=== PATIENT | male | born 1940 | race Caucasian/White ===

== ENCOUNTER 2021-02-12 17:55 | Emergency (ER) | payer MEDICARE, SELFPAY ==
--- NOTE | ~2021-02-12 | CT_ITS ---
EXAMINATION: CT brain wo con DATE: 02/12/2021 18:28 INDICATION: Fall. Head injury. TECHNIQUE: Computed tomography (CT) of the head was performed without intravenous contrast. The mA wa s adjusted according to patient size. Iterative reconstruction technique was employed. Exam dose: 68 1.00 mGy-cm total exam DLP. COMPARISON: 02/20/2011 CT brain 04/20/2016 MRI brain FINDINGS: There is extensive right cerebellar hemisphere chronic abnormal hypoattenuation. This may be due to old infarction or postoperative change. There is occipital craniectomy. There is a high right frontoparietal ventriculostomy catheter tract. There is central and cortical cerebral and cerebellar atrophy. Bilateral basal ganglia calcifications. No intracranial mass lesion or hemorrhage, midline shift or mass effect. No subdural or epidural varsha danielle. No skull fracture is detected. Small mucous retention cyst of left maxillary sinus. The paranasal sinuses and mastoid air cells are otherwise unremarkable. IMPRESSION: Occipital craniotomy and underlying chronic cephalization of the right cerebellum Old right frontal ventriculostomy catheter tract No acute intracranial abnormality. Reviewed, dictated and finalized at [facility]. Reviewed, dictated and finalized at [facility]. IMPRESSION: Occipital craniotomy and underlying chronic cephalization of the r ight cerebellum Old right frontal ventriculostomy catheter tract No acute intracranial abnormality.
--- NOTE | ~2021-02-12 | CT_ITS ---
EXAMINATION: CT cervical spine wo con DATE: 02/12/2021 18:28 INDICATION: Fall. Neck injury. Neck pain. TECHNIQUE: Computed tomography (CT) of the cervical spine was performed without intravenous contrast. Automated exposure control and iterative reconstruction technique were employed. Exam dose: 203.63 mGy-cm total exam DLP. COMPARISON: None FINDINGS: There is levoscoliosis of the cervical spine. No fracture or dislocation or locked facet or prevertebral soft tissue swelling. 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 Likewise there is incomplete segmentation at C4-5, congenital anomaly. There is moderately severe degenerative disc disease and mild retrolisthesis at C3-4. There is severe degenerative disc disease at C5-6. There is a 3 mm anterolisthesis at C6-7. There is severe degenerative disc disease and minimal anterolisthesis at C7-T1. There is severe degenerative disease at T1-2 and T2-3. There is severe degenerative change at the apophyseal joints of the cervical spine. 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 Reviewed, dictated and finalized at [facility].
[2021-02-12 17:57] VITALS: BP 204/78; PULSE 89; RESP 18; TEMP 36.7; O2SAT 99
[2021-02-12] MEDS: LIDOCAINE, EPINEPHRINE, TETRACAINE VISCOUS SOLN 3 ML (18:18)
[2021-02-12] MEDS: TETANUS,DIPHTHERIA,AC PERTUSSIS ADULT (0.5 ML) BOOSTRIX (18:20)
--- NOTE | 2021-02-12 19:25 | ED.GENADULT ---
HPI - General Adult General Chief complaint: Wound/Laceration Stated complaint: fall/head lac Time Seen by Provider: 02/12/21 18:06 Source: patient Mode of arrival: ambulatory Limitations: no limitations History of Present Illness HPI narrative: Patient is a 80-year-old male who presented to emergency department for evaluation of head injury patient was hurrying up the stairs fell forward striking the head sustaining a laceration to the left brow patient notes mild headache patient denies loss of consciousness syncope or anticoagulant use patient on arrival to emergency department is in the room in no distress patient notes history of chronic neck pain and surgery patient otherwise in no distress is unsure as to tetanus status patient lives at home with his Related Data Allergies Allergy/AdvReac Type Severity Reaction Status Date / Time Sulfa (Sulfonamide Allergy Mild ITCH, HIVES Verified 02/12/21 18:04 Antibiotics) Review of Systems Review of Systems: All systems reviewed & are unremarkable except as noted in HPI and below PMFSH Past Medical History Medical History (Updated 02/12/21 @ 19:30 by Mejia Koenig PA-C) Arthritis Surgical History Surgical History H/O brain surgery Social History Social History (Updated 02/12/21 @ 19:27 by Mejia Koenig PA-C) Smoking status: Never smoker Gender identity (if verbalized by the patient): Male Exam Narrative: Exam Narrative: GENERAL: Well-appearing, well-nourished, and in no acute distress. HEAD: Normocephalic, 1.5 cm flap laceration above the left brow. Small well approximated half centimeter wound to the nasal bridge EYES: PERRLA and EOMI. ENT: Nares clear, no rhinorrhea or epistaxis. Mucous membranes moist. CHEST: Clear to auscultation. No respiratory distress. No wheezes rales or rhonchi HEART: Regular rate and rhythm. No murmur heard. Normal peripheral pulses. ABDOMEN: Soft, nontender, nondistended EXTREMITIES: Normal range of motion. No edema. Mild paraspinal cervical tenderness. No thoracic or lumbar tenderness SKIN: Warm, dry, no rash. NEURO: No focal deficits. Alert and oriented x3. Cranial nerves II through XII grossly intact. Normal speech and gait PSYCH: Normal mood and affect. Course Course Emergency Course: Patient on arrival to emergency department in no distress resting comfortably had closure of his laceration in the emergency department negative CT imaging. Patient will follow with primary care for further evaluation. Family is present aware of the findings and plan and agree with the plan Vital Signs Vital signs: Vital Signs Temperature 98.1 F 02/12/21 17:57 Pulse Rate 89 02/12/21 17:57 Respiratory Rate 18 02/12/21 17:57 Blood Pressure 204/78 H 02/12/21 17:57 Pulse Oximetry 99 02/12/21 17:57 Temperature 98.1 F 02/12/21 17:57 Pulse Rate 89 02/12/21 17:57 Respiratory Rate 18 02/12/21 17:57 Blood Pressure 204/78 H 02/12/21 17:57 Pulse Oximetry 99 02/12/21 17:57 Procedures Laceration Laceration 1: Date: 02/12/21 Time: 19:29 Site: face Side (If applicable): left Size (cm): 1.5 Description: flap ====== Skin Level ====== Skin layer closed with: dermabond ====== Subcutaneous Layer ====== ====== Muscle Layer ====== ====== Tendon Layer ====== Medical Decision Making [facility] Narrative Medical decision making narrative: Patient in the room no distress aware of case findings treatment plan diagnosis negative CT imaging will be discharged home with family for further evaluation on outpatient basis Vital Signs Vital Signs: Vital Signs Temperature 98.1 F 02/12/21 17:57 Pulse Rate 89 02/12/21 17:57 Respiratory Rate 18 02/12/21 17:57 Blood Pressure 204/78 H 02/12/21 17:57 Pulse Oximetry 99 02/12/21 17:57 Temperature 98.1 F 02/12/21 17:57 Puls
== END 2021-02-12 19:42 | disposition home or self-care (01) ==
PROVIDERS: Emergency Provider Emergency Medicine; PCP Internal Medicine
DX: S01.112A Laceration without foreign body of left eyelid and periocular area, initial encounter (principal); M19.90 Unspecified osteoarthritis, unspecified site; Z23 Encounter for immunization; W10.9XXA Fall (on) (from) unspecified stairs and steps, initial encounter
CPT/HCPCS: 12011; 70450; 72125; 90471; 90715; 99284

== ENCOUNTER 2021-03-02 08:28 | Outpatient (CLI) | payer MEDICARE, SELFPAY ==
--- NOTE | 2021-03-02 10:00 | NEURO_ITS ---
Impression: # Complains of numbness and pain in hands, left more than right. # Severe Carpal Tunnel Syndrome bilaterally. # Significant neurogenic changes in bilateral APB. # Left ulnar neuropathy across the elbow. Nerve Conduction Studies Anti Sensory Summary Table Stim Site NR Peak (ms) P-T Amp (?V) Site1 Site2 Delta-P (ms) Dist (cm) Ray (m/s) Left Median Anti Sensory (2-3nd Digit) NO RESPONSE Wrist NR Wrist 2-3nd Digit 14.0 Wrist NR Wrist 2-3nd Digit 14.0 Right Median Anti Sensory (2-3nd Digit) Wrist 6.0 9.7 Wrist 2-3nd Digit 6.0 14.0 23 Wrist 8.1 7.7 Wrist 2-3nd Digit 6.0 14.0 23 Left Radial Anti Sensory (Base 1st Digit) Wrist 2.3 18.0 Wrist Base 1st Digit 2.3 0.0 Right Radial Anti Sensory (Base 1st Digit) Wrist 2.8 16.8 Wrist Base 1st Digit 2.8 0.0 Left Ulnar Anti Sensory (5th Digit) Wrist 2.7 30.9 Wrist 5th Digit 2.7 14.0 52 Right Ulnar Anti Sensory (5th Digit) Wrist 2.6 39.1 Wrist 5th Digit 2.6 14.0 54 Motor Summary Table Stim Site NR Onset (ms) O-P Amp (mV) Site1 Site2 Delta-0 (ms) Dist (cm) Ray (m/s) Left Median Motor (Abd Poll Brev) NO RESPONSE Wrist NR Elbow Wrist 26.0 Elbow NR Right Median Motor (Abd Poll Brev) NO RESPONSE Wrist NR Elbow Wrist 26.0 Elbow NR Left Ulnar Motor (Abd Dig Minimi) Wrist 2.5 4.2 A Elbow Wrist 6.4 30.0 47 A Elbow 8.9 3.5 B Elbow Wrist 4.7 26.0 55 B Elbow 7.2 3.4 Right Ulnar Motor (Abd Dig Minimi) Wrist 2.7 4.5 A Elbow Wrist 5.4 30.0 56 A Elbow 8.1 4.1 F Wave Studies NR F-Lat (ms) L-R F-Lat (ms) Left Median (Mrkrs) (Abd Poll Brev) NO RESPONSE NR Right Median (Mrkrs) (Abd Poll Brev) DISPERSED RESPONSE NR Left Ulnar (Mrkrs) (Abd Dig Min) 30.98 0.83 Right Ulnar (Mrkrs) (Abd Dig Min) 30.16 0.83 EMG Side Muscle Nerve Root Ins Act Fibs Amp Dur Recrt Comment Right 1stDorInt Ulnar C8-T1 Nml Nml Nml Nml Nml Right Ext Indicis Radial (Post Int) C7-8 Nml Nml Nml Nml Nml Right Ext Digitorum Radial (Post Int) C7-8 Nml Nml Nml Nml Nml Right BrachioRad Radial C5-6 Nml Nml Nml Nml Nml Right PronatorTeres Median C6-7 Nml Nml Nml Nml Nml Right Abd Poll Brev Median C8-T1 Nml Nml Decr >12ms Reduced Left 1stDorInt Ulnar C8-T1 Nml Nml Decr >12ms Reduced Left Ext Indicis Radial (Post Int) C7-8 Nml Nml Nml Nml Nml Left Ext Digitorum Radial (Post Int) C7-8 Nml Nml Nml Nml Nml Left BrachioRad Radial C5-6 Nml Nml Nml Nml Nml Left PronatorTeres Median C6-7 Nml Nml Nml Nml Nml Left Abd Poll Brev Median C8-T1 Nml Nml Decr >12ms Reduced Right ABD Dig Min Ulnar C8-T1 Nml Nml Nml Nml Nml Left ABD Dig Min Ulnar C8-T1 Nml Nml Decr >12ms Reduced MTDD
== END 2021-03-02 08:29 | disposition home or self-care (01) ==
PROVIDERS: PCP Internal Medicine; Visit Provider Internal Medicine
DX: G56.03 Carpal tunnel syndrome, bilateral upper limbs (principal); G56.22 Lesion of ulnar nerve, left upper limb
CPT/HCPCS: 95886; 95911

== ENCOUNTER 2022-10-11 08:15 | Outpatient (CLI) | payer MEDICARE, SELFPAY ==
--- NOTE | ~2022-10-11 | XR_ITS ---
EXAMINATION: XR abdomen/kub 1V INDICATION: History of kidney stones TECHNIQUE: Supine views of the abdomen were obtained on 2 radiographs. COMPARISON: 06/19/2013 FINDINGS: Bowel contents project over the kidneys limiting sensitivity for renal stones. No definite urolithiasis is identified. There are changes of bilateral total hip arthroplasty. Severe lumbar spon dylosis is noted. The visualized lung bases are clear. There are changes of prior cardiac surgery. IMPRESSION: 1. No definite urolithiasis identified. Reviewed, dictated and finalized at [facility]. [employer]
== END 2022-10-11 08:16 | disposition home or self-care (01) ==
PROVIDERS: PCP Internal Medicine; Visit Provider Nurse Practitioner Adult Health
DX: Z87.442 Personal history of urinary calculi (principal)
CPT/HCPCS: 74018

== ENCOUNTER 2022-12-25 00:08 | Day surgery (SDC) | payer MEDICARE, SELFPAY ==
[2022-12-11 10:48] VITALS: BMI 26.7
--- NOTE | 2022-12-22 15:14 | PM.HPGS ---
History of Present Illness History of Present Illness Consent: Risks, benefits, and alternatives have been discussed and questions answered. Patient agrees to proceed with procedure. Chief complaint: positive cologuard Narrative: Arjun Garvey is a 82 year old male Referred for colon cancer screening. A Cologuard test was positive Review of Systems Review of Systems: All systems reviewed & are unremarkable except as noted in HPI and below PMFSH Past Medical History Medical History Arthritis Surgical History Surgical History H/O brain surgery Social History Social History Smoking status: Former smoker Tobacco type: cigarettes Smokeless tobacco user: chewing tobacco Alcohol use details: RARELY Substance use type: does not use Living arrangements: with family Gender identity (if verbalized by the patient): Male Spiritual care concerns: No Meds Home Medications and Allergies Home Medications Medication Instructions Recorded Confirmed Type amlodipine 10 mg tablet 10 mg PO DAILY 12/11/22 12/11/22 History aspirin 81 mg tablet 81 mg PO DAILY 12/11/22 12/11/22 History atorvastatin 20 mg tablet 20 mg PO DAILY 12/11/22 12/11/22 History cetirizine 10 mg tablet (Zyrtec) 10 mg PO DAILY 12/11/22 12/11/22 History diclofenac sodium 75 mg 75 mg PO BID 12/11/22 12/11/22 History tablet,delayed release finasteride 5 mg tablet 5 mg PO DAILY 12/11/22 12/11/22 History lisinopril 40 mg tablet 40 mg PO DAILY 12/11/22 12/11/22 History metoprolol tartrate 50 mg tablet 50 mg PO BID 12/11/22 12/11/22 History iipzwjvt-rym-ebwya acid 300 tablet PO 12/11/22 History mcg-lycopene 600 mcg-lutein 300 mcg tablet (Centrum Silver Men) tamsulosin 0.4 mg capsule 0.4 mg PO DAILY 12/11/22 12/11/22 History Allergies Allergy/AdvReac Type Severity Reaction Status Date / Time Sulfa (Sulfonamide Allergy Mild ITCH, HIVES Verified 12/11/22 10:43 Antibiotics) Exam Resp: Auscultation: clear to auscultation bilaterally Cardio: Rate: regular rate Rhythm: regular rhythm GI: GI Palp: Yes Soft to palpation and No Tenderness to palpation present (GI) Assessment and Plan Assessment and plan (1) Colon cancer screening: Code(s): Z12.11 - Encounter for screening for malignant neoplasm of colon Status: Acute Assessment and Plan: Colonoscopy with possible biopsy or polypectomy or cautery or injection of substances.
[2022-12-25] MEDS: LACTATED RINGERS 1,000 ML 150 ML IV CONT (08:39)
[2022-12-25] MEDS: GENTAMICIN 80MG/SOD CHL 50 ML 80 MG/50 ML BAG 100 MG IVPB (08:40)
--- NOTE | 2022-12-25 08:58 | P.PNAN_ITS ---
Anes - Initial Pre Proc Eval Procedure: Operation Date: 12/25/22 09:30 Proposed Procedures p Colonoscopy - Saman Mccarthy MD Date/Time: 12/25/22 08:58 Surgeon: Saman Mccarthy MD Pre Op Diagnosis: positive cologuard Patient Data Age: 82 Gender: M Height: 1.7 m Weight: 77.5 kg Allergies Allergy/AdvReac Type Severity Reaction Status Date / Time Sulfa (Sulfonamide Allergy Mild ITCH, HIVES Verified 12/11/22 10:43 Antibiotics) Home Medications Medication Instructions Recorded Confirmed Type amlodipine 10 mg tablet 10 mg PO DAILY 12/11/22 12/11/22 History aspirin 81 mg tablet 81 mg PO DAILY 12/11/22 12/11/22 History atorvastatin 20 mg tablet 20 mg PO DAILY 12/11/22 12/11/22 History cetirizine 10 mg tablet (Zyrtec) 10 mg PO DAILY 12/11/22 12/11/22 History diclofenac sodium 75 mg 75 mg PO BID 12/11/22 12/11/22 History tablet,delayed release finasteride 5 mg tablet 5 mg PO DAILY 12/11/22 12/11/22 History lisinopril 40 mg tablet 40 mg PO DAILY 12/11/22 12/11/22 History metoprolol tartrate 50 mg tablet 50 mg PO BID 12/11/22 12/11/22 History atfmekhn-vll-tmkoo acid 300 tablet PO 12/11/22 History mcg-lycopene 600 mcg-lutein 300 mcg tablet (Centrum Silver Men) tamsulosin 0.4 mg capsule 0.4 mg PO DAILY 12/11/22 12/11/22 History Patient hx anesthesia problems: none Family hx anesthesia problems: none Results Review: All pre-operative results and documents have been reviewed as part of the pre- operative evaluation. [facility] Past Medical History Medical History Arthritis Surgical History Surgical History H/O brain surgery Social History Social History Smoking status: Former smoker Tobacco type: cigarettes Smokeless tobacco user: chewing tobacco Alcohol use details: RARELY Substance use type: does not use Living arrangements: with family Gender identity (if verbalized by the patient): Male Spiritual care concerns: No Anes - Eval Final PreProcedure Day of Procedure 12/25/22 08:58 Patient weight: normal Heart: regular rate and rhythm Lungs: clear to auscultation Airway: Mallampati scale class II Neurological: alert and oriented Last oral intake: >/= 8 hours ASA classification: III Emergent: no Anesthetic plan: proceed Anesthesia type and monitoring: general GIVS and standard monitoring Results Review: All pre-operative results and documents have been reviewed as part of the pre-operative evaluation. Informed Consent: The patient's anesthetic plan and its attendant risks and benefits were discussed with the patient/family/POA. Questions were solicited and answers provided to the satisfaction of the patient/family/POA.
[2022-12-25] MEDS: AMPICILLIN 2 GM/NS 100 ML 2 GM/100 ML BAG IVPB (09:22)
[2022-12-25 09:44] VITALS: BP 117/66; PULSE 62; RESP 19; O2SAT 100
[2022-12-25 09:54] VITALS: BP 144/74; PULSE 56; RESP 23; O2SAT 98
[2022-12-25 10:04] VITALS: BP 147/71; PULSE 56; RESP 19; O2SAT 99
== END 2022-12-25 10:13 | disposition home or self-care (01) ==
PROVIDERS: PCP Internal Medicine; Visit Provider Internal Medicine Gastroenterology
PROC: 0DJD8ZZ Inspection of Lower Intestinal Tract, Via Natural or Artificial Opening Endoscopic (ICD-10-PCS; CPT 45378; principal; 2022-12-25 09:30)
DX: Z12.11 Encounter for screening for malignant neoplasm of colon (principal); K57.30 Diverticulosis of large intestine without perforation or abscess without bleeding; K64.8 Other hemorrhoids; R19.5 Other fecal abnormalities; F17.220 Nicotine dependence, chewing tobacco, uncomplicated; Z79.82 Long term (current) use of aspirin
CPT/HCPCS: G0121; J0290; J1580; J2704; J7120

== ENCOUNTER 2024-03-30 19:12 | Emergency (ER) | payer MEDICARE, SELFPAY ==
--- NOTE | ~2024-03-30 | CT_ITS ---
EXAMINATION: CT abdomen pelvis w con DATE: 03/30/2024 20:24 INDICATION: Left flank pain and hematuria TECHNIQUE: Computed tomography (CT) of the abdomen and pelvis was performed with 100 mL Omnipaque-350 intravenous contrast. Automated exposure control and iterative reconstruction technique were employe d. The dose-length product was 472.14 mGy-cm. COMPARISON: None FINDINGS: Small band of discoid atelectasis/scarring in the right middle lobe. Heart size is normal. Atheroscle rotic coronary artery calcifications. Postoperative change of prior median sternotomy and coronary ar sarah bypass grafting. There is also been prior aortic valve repair. Liver, gallbladder, spleen, pancr eas and bilateral adrenal glands are normal. There are bilateral renal cysts the largest on the left measuring 5.0 cm. Bilateral nonobstructing nephrolithiasis with 2 mm stone at the upper pole of the l eft kidney and 2 mm and 4 mm stones at the lower pole of the right kidney. No ureteral stones or hydr onephrosis. The distalmost portions of the ureters along the course of the bladder and prostate are h owever obscured by dense metallic streak artifact from bilateral total hip arthroplasties. There are a couple large stones in the dependent bladder the larger measuring 2.4 cm. Numerous diverticula roseanne g the descending and sigmoid colon without adjacent inflammatory change to suggest diverticulitis. Sm all bowel and appendix are normal. No free intraperitoneal gas or fluid. No pathologically enlarged a bdominal or pelvic lymphadenopathy. Severe lumbar spondylosis. There are bridging osteophytes at mult iple levels in the lower thoracic spine consistent with diffuse idiopathic skeletal hyperostosis (DIS H). IMPRESSION: 1. Bilateral nonobstructing nephrolithiasis and a couple large bladder stones. 2. Prominent diverticulosis. Reviewed, dictated and finalized at location [facility].
[2024-03-30 19:14] VITALS: BP 183/68; PULSE 74; RESP 17; TEMP 36.6; O2SAT 99
--- NOTE | 2024-03-30 19:26 | ED.GENADULT ---
HPI - General Adult General Chief complaint: Urogenital-Male Stated complaint: blood in urine, pain with urination Time Seen by Provider: 03/30/24 19:19 Source: patient Mode of arrival: ambulatory Limitations: no limitations History of Present Illness HPI narrative: This is a 83-year-old male with PMH of hemangioblastoma, CAD s/p CABGx4, SCC, nephrolithiasis who presents to the ED with chief complaint of hematuria and difficulty urinating onset today. Patient is concerned that he may have another kidney stone. He had some a left side and left flank pain over the past couple of weeks intermittently. Reports today he noticed diego blood while urinating. He states he had 2 episodes today where he started the stream and was unable to completely void. States he had a prostate checked last year with good PSA. Follows with Dr. Balderrama. Denies nausea, vomiting, fevers, chills, abdominal pain, problems with bowel movements. Related Data Home Medications Medication Instructions Recorded Confirmed amlodipine 10 mg tablet 10 mg PO DAILY 12/11/22 12/11/22 aspirin 81 mg tablet 81 mg PO DAILY 12/11/22 12/11/22 atorvastatin 20 mg tablet 20 mg PO DAILY 12/11/22 12/11/22 cetirizine 10 mg tablet (Zyrtec) 10 mg PO DAILY 12/11/22 12/11/22 diclofenac sodium 75 mg 75 mg PO BID 12/11/22 12/11/22 tablet,delayed release finasteride 5 mg tablet 5 mg PO DAILY 12/11/22 12/11/22 lisinopril 40 mg tablet 40 mg PO DAILY 12/11/22 12/11/22 metoprolol tartrate 50 mg tablet 50 mg PO BID 12/11/22 12/11/22 qsbastrs-ux-okesx 300 mcg-K 60 tablet PO 12/11/22 mcg-lycop 600 mcg-lutein 300 mcg tablet (Centrum Silver Men) tamsulosin 0.4 mg capsule 0.4 mg PO DAILY 12/11/22 12/11/22 Allergies Allergy/AdvReac Type Severity Reaction Status Date / Time Sulfa (Sulfonamide Allergy Mild ITCH, HIVES Verified 03/30/24 19:24 Antibiotics) Review of Systems Review of Systems: All systems as dictated in [facility] Past Medical History Medical History Arthritis Surgical History Surgical History H/O brain surgery Social History Social History Smoking status: Former smoker Tobacco type: cigarettes Smokeless tobacco user: chewing tobacco Alcohol use details: RARELY Substance use type: does not use Living arrangements: with family Gender identity (if verbalized by the patient): Male Spiritual care concerns: No Exam Narrative: GENERAL: Well-appearing, well-nourished, and in no acute distress. HEAD: Normocephalic, atraumatic. EYES: PERRLA and EOMI. ENT: Nares clear, no rhinorrhea or epistaxis. Mucous membranes moist. Oropharynx without tonsillar hypertrophy exudate or other lesions. NECK: Supple. No adenopathy or masses. CHEST: No respiratory distress. Clear to auscultation. No wheezes rales or rhonchi HEART: Regular rate and rhythm. No murmur heard. Normal peripheral pulses. ABDOMEN: Mild suprapubic tenderness. Soft, otherwise nontender, nondistended, normal active bowel sounds. Negative flank tenderness bilaterally. No rigidity or guarding MSK: Normal range of motion. No edema. SKIN: Warm, dry, no rash. NEURO: Alert and oriented x3. No focal deficits. PSYCH: Normal mood and affect. Course Consultations Consultation #1: Spoke with Dr. Mcleod (Urology): He feels that the patient will likely need a cystoscope with laser treatment of this large bladder stone. Since the patient is able to void on his own, has no fevers or signs of infection, the patient should be able to do this procedure outpatient. Recommends following up with Dr. Linares (pt's urologist) in the morning. Date: 03/30/24 Time: 21:01 Vital Signs Vital signs: Vital Signs Temperature 97.9 F 03/30/24 19:14 Pulse Rate 74 03/30/24 19:14 Respiratory Rate 17 03/30/24 19:14 Blood Pr
[2024-03-30 19:52] VITALS: BP 145/57; PULSE 67; RESP 16; O2SAT 99
[2024-03-30 19:55] LABS: Basophils Absolute Auto 0.1 K/mm3 (0.0-0.1); Basophils Percent Auto 1.1 % (0.2-1.2); Eosinophils Absolute Auto 0.5 K/mm3 (0-0.3); Eosinophils Percent Auto 5.9 % (0-4.4); Hematocrit 33.4 % (42.0-52.0); Hemoglobin 10.8 g/dL (14.0-18.0); Immature Granulocyte Absolute 0.02 K/mm3 (0.00-0.031); Immature Granulocyte Percent A 0.2 % (0-0.5); Lymphocytes Absolute Auto 1.52 K/mm3 (0.9-3.2); Lymphocytes Percent Auto 18.8 % (18.3-44.2); Mean Corpuscular HGB Conc 32.3 g/dl (32-36); Mean Corpuscular Volume 92.8 fl (80-100); Mean Platelet Volume 10.4 fl (7.4-10.4); Monocytes Absolute Auto 0.8 K/mm3 (0.1-0.6); Monocytes Percent Auto 10.2 % (2.6-8.5); Neutrophils Absolute Auto 5.1 K/mm3 (1.3-6.7); Neutrophils Percent Auto 63.8 % (45.5-73.1); Platelet Count Result 164 k/mm3 (150-375); Red Cell Distribution Width 13.7 % (11.5-14.5); White Blood Count 8.1 K/mm3 (4.5-10.0)
[2024-03-30 20:05] LABS: Alanine Aminotransferase 24 U/L (6-50); Albumin Level 4.5 g/dL (3.5-5.1); Alkaline Phosphatase 81 U/L (38-126); Anion Gap 9 mmol/L (4-12); Aspartate Amino Transferase 33 U/L (17-59); Bilirubin,Total 0.5 mg/dL (0.2-1.3); Blood Urea Nitrogen 46 mg/dL (9-20); Calcium 9.8 mg/dL (8.4-10.2); Carbon Dioxide 22 mmol/L (22-30); Chloride 112 mmol/L (98-107); Estimated CRCL calculation 31 ml/min; Estimated Glomerular Filt Rate 45; Glucose 142 mg/dL (65-110); Lipase 306 U/L (23-300); Potassium 4.6 mmol/L (3.4-5.0); Sodium 143 mmol/L (137-145)
[2024-03-30 20:15] LABS: Appearance Urine Clear (Clear); Bacteria Urine None Seen /hpf; Bilirubin Urine Negative (Negative); Blood Urine 3+ (Negative); Color Urine Yellow (Yellow); Glucose Urine UA Negative (Negative); Ketones Urine Trace mg/dL (Negative); Leukocyte Esterase Ur 1+ LEU/UL (Negative); Nitrate Urine Negative (Negative); Protein Urine Negative (Negative); RBC Urine >100 /hpf (0-2); Specific Grav Ur 1.019 (1.001-1.035); Squamous Epithelial Cell Urine Occasional /hpf (Few); Urobilinogen Urine 0.2 mg/dL (<2.0)
[2024-03-30 20:20] LABS: Add Urine Microscopic? YES
[2024-03-30] MEDS: SODIUM CHLORIDE 0.9% IV 1,000 ML 999 ML IV CONT (20:29)
[2024-03-30 21:20] VITALS: BP 138/72; PULSE 64; RESP 18; O2SAT 100
== END 2024-03-30 21:21 | disposition home or self-care (01) ==
PROVIDERS: Emergency Provider Physician Assistant; PCP Internal Medicine
DX: N21.0 Calculus in bladder (principal); R31.9 Hematuria, unspecified; I25.10 Atherosclerotic heart disease of native coronary artery without angina pectoris; M19.90 Unspecified osteoarthritis, unspecified site; Z95.1 Presence of aortocoronary bypass graft; Z87.891 Personal history of nicotine dependence; K57.90 Diverticulosis of intestine, part unspecified, without perforation or abscess without bleeding; N20.0 Calculus of kidney; Z79.82 Long term (current) use of aspirin
CPT/HCPCS: 36415; 74177; 80053; 81001; 83690; 85025; 87086; 96360; 99284; J7030; Q9967

== ENCOUNTER 2024-04-14 10:48 | Outpatient (CLI) | payer MEDICARE, SELFPAY ==
--- NOTE | 2024-04-14 10:57 | ECG_ITS ---
SEE SCANNED COPY FOR CONFIRMED REPORT MTDD
== END 2024-04-14 10:49 | disposition home or self-care (01) ==
LOC: ANHSURGERY 10:53
PROVIDERS: PCP Internal Medicine; Visit Provider Urology
DX: I10 Essential (primary) hypertension (principal); Z01.818 Encounter for other preprocedural examination
CPT/HCPCS: 93005

== ENCOUNTER 2024-04-24 00:18 | Day surgery (SDC) | payer MEDICARE, SELFPAY ==
[2024-04-10 13:50] VITALS: BMI 27.3
--- NOTE | 2024-04-10 14:27 | PC.NURSE ---
Report to the Outpatient Waiting Room, entrance under the green pavilion located off [facility], at time ___11:15AM____ on date ___04/24/24____. Planned Procedure Time: ___1:15PM . Time changes happen often and if your time is changed the preop area will call you the afternoon before. - You and your visitor will be asked to self-screen and do not enter if you have any COVID symptoms. - A mask is optional within the hospital at this time. Patients may have clear liquids (water, carbonated beverages, clear teas, apple juice) until 3 hours prior to surgery with a maximum of 20 ounces. - No food from midnight until time of surgery. Take the following medications with a SIP of water the morning of surgery: AMLODIPINE, METOPROLOL. MAY USE ALBUTEROL INHALER NEEDED. DO NOT STOP ANY OF YOUR OTHER PRESCRIPTION MEDICATIONS PRIOR TO SURGERY ?EXCEPT THE FOLLOWING Medications to discontinue per physician ____HOLD ASPIRIN & DICLOFENAC 7 DAYS PRE-OP PER DR MILLER- LAST DOSE 04/16/24 HOLD ALL VITAMINS/SUPPLEMENTS 3 DAYS PRE-OP PER ANESTHESIA- LAST DOSE 04/20/24 Please no make-up, nail slovak, hairspray, perfume, deodorant, or body powder the day of surgery. No jewelry (including any body piercings) or valuables the day of surgery, leave them at home. Please take a shower or bath the night before, or the morning of, surgery with an antibacterial soap. Wear comfortable, loose fitting clothing. - Jewelry must be removed prior to entering the operating room. Rings and piercings that are not removed may be cut off. - The hospital will not accept responsibility for valuables. - Please leave all valuables, including medications, at home the day of surgery. If you are going home after surgery, a licensed [facility] driver must drive you home. - NO public transportation without another adult if you receive anesthesia. - We recommend that an adult stay with you for 24 hours following discharge. - We also recommend that you do not drive, make important decision, drink alcoholic beverages, or take any drugs that were not prescribed by your health care provider for at least 24 hours after your discharge time. Follow any additional instructions given to you from your surgeon. If you or anyone in your household have experienced Covid symptoms in the past week, please notify your surgeon or the nurse liaison at the phone number below for possible testing. Telephone instructions given to __PATIENT and asked if any additional questions and then verbalized understanding. Patient advised to call surgeon office or pre surgery nurse liaison [phone] if any additional questions.
--- NOTE | 2024-04-22 07:14 | PM.HPGS ---
History of Present Illness History of Present Illness Consent: Risks, benefits, and alternatives have been discussed and questions answered. Patient agrees to proceed with procedure. Chief complaint: large bladder stones Narrative: Arjun Garvey is a 83 year old male well known to our practice with longstanding bladder outlet obstruction. He has been on combination therapy for BPH but recently imaging demonstrated 2 large bladder stones measuring up to 2.5 cm. He now presents for attention to those stones. He is aware of the risk of the procedure including recurrent stones, hematuria, need for catheterization. Review of Systems Cardiovascular: Cardiovascular: Denies chest pain, Denies lightheadedness, Denies palpitations and Denies dyspnea Respiratory: Respiratory: Denies dyspnea Gastrointestinal: Gastrointestinal: Denies diarrhea, Denies nausea and Denies vomiting Genitourinary: Genitourinary: Denies hematuria and Denies dysuria Endocrine: Endocrine: Denies palpitations PMFSH Past Medical History Medical History Arthritis Surgical History Surgical History H/O brain surgery Social History Social History Smoking packs per day: 1 Smoking cigarettes per day: 20.0 Years smoked: 10 Smoking pack-years: 10.00 Smoking status: Former smoker Tobacco type: cigarettes, cigars and smokeless tobacco Smokeless tobacco user: chewing tobacco Smoking end date: 05/26/1968 Additional smoking assessment comments: QUIT CIG-1968, CHEWED AND CIGAR AT INTERVALS AFTER Alcohol intake: current Drinks per week: 4 Alcohol use details: RARELY Substance use type: does not use Living arrangements: with family Additional living arrangements comments: Gender identity (if verbalized by the patient): Male Spiritual care concerns: No Meds Home Medications and Allergies Home Medications Medication Instructions Recorded Confirmed Type amlodipine 10 mg tablet 10 mg PO QAM 12/11/22 04/10/24 History aspirin 81 mg tablet 81 mg PO DAILY 12/11/22 04/10/24 History cetirizine 10 mg tablet (Zyrtec) 10 mg PO DAILY 12/11/22 04/10/24 History diclofenac sodium 75 mg 75 mg PO BID 12/11/22 04/10/24 History tablet,delayed release finasteride 5 mg tablet 5 mg PO DAILY 12/11/22 04/10/24 History lisinopril 40 mg tablet 40 mg PO QAM 12/11/22 04/10/24 History metoprolol tartrate 50 mg tablet 50 mg PO BID 12/11/22 04/10/24 History [id number]-[id number]-[id number] 300 mcg-K 60 1 tablet PO DAILY 12/11/22 04/10/24 History mcg-lycop 600 mcg-lutein 300 mcg tablet (Centrum Silver Men) tamsulosin 0.4 mg capsule 0.4 mg PO DAILY 12/11/22 04/10/24 History acetaminophen 500 mg capsule 1,000 mg PO Q6H PRN Pain 04/10/24 04/10/24 History albuterol sulfate 90 mcg/actuation 2 puff inhalation Q4-6H PRN 04/10/24 04/10/24 History aerosol inhaler Shortness Of Breath Or Wheezing atorvastatin 40 mg tablet 40 mg PO DAILY 04/10/24 04/10/24 History esomeprazole magnesium 20 mg 20 mg PO DAILY PRN Indigestion 04/10/24 04/10/24 History capsule,delayed release (Nexium) Allergies Allergy/AdvReac Type Severity Reaction Status Date / Time Sulfa (Sulfonamide Allergy Mild ITCH, HIVES Verified 04/10/24 13:43 Antibiotics) Exam Const: General: no acute distress Resp: Effort & Inspection: normal respiratory effort GI: Inspection: non-distended GI Palp: No abdominal tenderness and No Guarding due to palpation present (GI) Auscultation: normal bowel sounds Assessment and Plan Assessment and plan (1) Colon cancer screening: Code(s): Z12.11 - Encounter for screening for malignant neoplasm of colon Status: Acute Assessment and Plan: Cystoscopy, laser lithotripsy bladder stones
[2024-04-24] VITALS (8 sets, daily range): BP systolic 120–148; BP diastolic 57–64; PULSE 52–59; RESP 14–20; TEMP 36.1–36.5; O2SAT 99–100
--- NOTE | 2024-04-24 06:21 | WPDHPUPDATE1 ---
History and Physical Update Update Date/Time: 04/24/24 06:21 History and Physical has been reviewed, including an updated exam of the patient. There are NO changes in the patient's condition. Risks, benefits, and alternatives have been discussed and questions answered. Patient agrees to proceed with procedure.
--- NOTE | 2024-04-24 10:51 | WPDANESEPPF ---
Anes - Initial Pre Proc Eval Procedure: Operation Date: 04/24/24 12:30 Proposed Procedures p Cystoscopy, Laser Lithotripsy of Bladder Stones - Wil Balderrama MD Date/Time: 04/24/24 10:51 Surgeon: Wil Balderrama MD Pre Op Diagnosis: large bladder stones Patient Data Age: 83 Gender: M Height: 1.69 m Weight: 78 kg Allergies Allergy/AdvReac Type Severity Reaction Status Date / Time Sulfa (Sulfonamide Allergy Mild ITCH, HIVES Verified 04/10/24 13:43 Antibiotics) Home Medications Medication Instructions Recorded Confirmed Type amlodipine 10 mg tablet 10 mg PO QAM 12/11/22 04/10/24 History aspirin 81 mg tablet 81 mg PO DAILY 12/11/22 04/10/24 History cetirizine 10 mg tablet (Zyrtec) 10 mg PO DAILY 12/11/22 04/10/24 History diclofenac sodium 75 mg 75 mg PO BID 12/11/22 04/10/24 History tablet,delayed release finasteride 5 mg tablet 5 mg PO DAILY 12/11/22 04/10/24 History lisinopril 40 mg tablet 40 mg PO QAM 12/11/22 04/10/24 History metoprolol tartrate 50 mg tablet 50 mg PO BID 12/11/22 04/10/24 History [id number] 300 mcg-K 60 1 tablet PO DAILY 12/11/22 04/10/24 History mcg-lycop 600 mcg-lutein 300 mcg tablet (Centrum Silver Men) tamsulosin 0.4 mg capsule 0.4 mg PO DAILY 12/11/22 04/10/24 History acetaminophen 500 mg capsule 1,000 mg PO Q6H PRN Pain 04/10/24 04/10/24 History albuterol sulfate 90 mcg/actuation 2 puff inhalation Q4-6H PRN 04/10/24 04/10/24 History aerosol inhaler Shortness Of Breath Or Wheezing atorvastatin 40 mg tablet 40 mg PO DAILY 04/10/24 04/10/24 History esomeprazole magnesium 20 mg 20 mg PO DAILY PRN Indigestion 04/10/24 04/10/24 History capsule,delayed release (Nexium) Patient hx anesthesia problems: none Family hx anesthesia problems: none Results Review: All pre-operative results and documents have been reviewed as part of the pre-operative evaluation. PMFSH Past Medical History Medical History (Updated 04/24/24 @ 10:52 by Breezy Vanegas MD) Arthritis CAD (coronary artery disease) COPD (chronic obstructive pulmonary disease) Surgical History Surgical History (Updated 04/24/24 @ 10:52 by Breezy Vanegas MD) H/O brain surgery Hx of CABG Social History Social History Smoking packs per day: 1 Smoking cigarettes per day: 20.0 Years smoked: 10 Smoking pack-years: 10.00 Smoking status: Former smoker Tobacco type: cigarettes, cigars and smokeless tobacco Smokeless tobacco user: chewing tobacco Smoking end date: 05/26/1968 Additional smoking assessment comments: QUIT CIG-1968, CHEWED AND CIGAR AT INTERVALS AFTER Alcohol intake: current Drinks per week: 4 Alcohol use details: RARELY Substance use type: does not use Living arrangements: with family Additional living arrangements comments: Gender identity (if verbalized by the patient): Male Spiritual care concerns: No Anes - Eval Final PreProcedure Day of Procedure 04/24/24 10:51 Patient weight: overweight Heart: regular rate and rhythm Lungs: clear to auscultation Airway: Mallampati scale class II Neurological: alert and oriented Last oral intake: >/= 8 hours ASA classification: IV Emergent: no Anesthetic plan: proceed Anesthesia type and monitoring: general LMA and standard monitoring Results Review: All pre-operative results and documents have been reviewed as part of the pre-operative evaluation. Informed Consent: The patient's anesthetic plan and its attendant risks and benefits were discussed with the patient/family/POA. Questions were solicited and answers provided to the satisfaction of the patient/family/POA.
[2024-04-24] MEDS: LACTATED RINGERS 1,000 ML 30 ML IV CONT (11:00)
--- NOTE | 2024-04-24 12:50 | P.OP_ITS ---
Procedure Note - Detailed Date of Procedure 04/24/24 Pre-op Diagnosis Large bladder stones Post-op Diagnosis Same Procedure Performed Laser lithotripsy, extraction of bladder stones Surgeon Wil Balderrama MD Anesthesia General Description of Procedure patient is brought to the operative suite was prepped draped in routine sterile fashion while in dorsal lithotomy position after the uneventful induction of a general LMA anesthetic. Cystoscopy undertaken with a 21 F rigid cystoscope. He has 2 stones in his bladder, 1 quite large ( approximately 4-5 cm). The 2nd is smaller. Using a 1000 micron holmium laser fiber the stones were fractured into small pieces all of which were evacuated with an [employer] evacuator. At the end of the procedure I placed a 20 F coude catheter to drainage. Should be noted the patient had moderate lateral lobe hyperplasia without a median lobe enlargement. Bladder mucosa showed no signs of abnormal hyperemia or urothelial carcinoma. Drains Yes Pathology Yes Complications No immediate complications Disposition PACU
== END 2024-04-24 14:38 | disposition home or self-care (01) ==
PROVIDERS: PCP Internal Medicine; Visit Provider Urology
PROC: (CPT 52352; principal; 2024-04-24 12:30)
DX: N21.0 Calculus in bladder (principal); N40.0 Benign prostatic hyperplasia without lower urinary tract symptoms; F17.220 Nicotine dependence, chewing tobacco, uncomplicated; I25.10 Atherosclerotic heart disease of native coronary artery without angina pectoris; J44.9 Chronic obstructive pulmonary disease, unspecified; Z79.82 Long term (current) use of aspirin; Z79.51 Long term (current) use of inhaled steroids; Z98.890 Other specified postprocedural states; Z95.1 Presence of aortocoronary bypass graft
CPT/HCPCS: 52318; 82365; 88300; 93005; C1769; J2405; J2704; J3010; J7120

== ENCOUNTER 2024-10-20 12:13 | Emergency (ER) | payer MEDICARE, SELFPAY ==
--- NOTE | ~2024-10-20 | XR_ITS ---
EXAMINATION: XR knee LT min 4V DATE: 10/20/2024 13:15 INDICATION: Fall. TECHNIQUE: 4 views of left knee were obtained. COMPARISON: None. FINDINGS: There is a total left knee arthroplasty with patellar resurfacing in near-anatomic alignmen t. There is a nondisplaced stellate periprosthetic fracture of distal femur. No periprosthetic lucenc y to suggest loosening or infection. No knee joint effusion. There are surgical clips in the soft tis sues. IMPRESSION: 1. Nondisplaced stellate periprosthetic fracture of distal femur. Reviewed, dictated and finalized at location A. [facility] OFFICE MANAGER
[2024-10-20 12:23] VITALS: BP 143/71; PULSE 57; RESP 16; TEMP 36.6; O2SAT 100
[2024-10-20 13:20] VITALS: BP 146/98; PULSE 61; RESP 16; TEMP 36.4; O2SAT 100
[2024-10-20 15:55] VITALS: BP 159/97; PULSE 62; RESP 17; O2SAT 99
[2024-10-20 16:03] LABS: Basophils Absolute Auto 0.1 K/mm3 (0.0-0.1); Basophils Percent Auto 0.6 % (0.2-1.2); Eosinophils Absolute Auto 0.2 K/mm3 (0-0.3); Eosinophils Percent Auto 1.9 % (0-4.4); Hematocrit 38.3 % (42.0-52.0); Hemoglobin 12.4 g/dL (14.0-18.0); Immature Granulocyte Absolute 0.06 K/mm3 (0.00-0.031); Immature Granulocyte Percent A 0.5 % (0-0.5); Lymphocytes Absolute Auto 1.29 K/mm3 (0.9-3.2); Lymphocytes Percent Auto 10.9 % (18.3-44.2); Mean Corpuscular HGB Conc 32.4 g/dl (32-36); Mean Corpuscular Volume 92.7 fl (80-100); Monocytes Absolute Auto 0.9 K/mm3 (0.1-0.6); Monocytes Percent Auto 7.7 % (2.6-8.5); Neutrophils Absolute Auto 9.3 K/mm3 (1.3-6.7); Neutrophils Percent Auto 78.4 % (45.5-73.1); Platelet Count Result 205 k/mm3 (150-375); Red Blood Count 4.13 M/mm3 (4.6-6.20); Red Cell Distribution Width 13.5 % (11.5-14.5); White Blood Count 11.9 K/mm3 (4.5-10.0)
[2024-10-20 16:12] LABS: Alanine Aminotransferase 28 U/L (6-50); Albumin Level 4.7 g/dL (3.5-5.1); Alkaline Phosphatase 93 U/L (38-126); Anion Gap 6 mmol/L (4-12); Aspartate Amino Transferase 36 U/L (17-59); Bilirubin,Total 0.9 mg/dL (0.2-1.3); Blood Urea Nitrogen 33 mg/dL (9-20); Calcium 9.6 mg/dL (8.4-10.2); Carbon Dioxide 27 mmol/L (22-30); Chloride 103 mmol/L (98-107); Estimated CRCL calculation 39 ml/min; Estimated Glomerular Filt Rate 58; Glucose 109 mg/dL (65-110); Potassium 4.7 mmol/L (3.4-5.0); Sodium 136 mmol/L (137-145)
[2024-10-20 16:15] LABS: Prothrombin Time 13.3 Seconds (11.1-14.7)
[2024-10-20 16:16] LABS: Partial Thromboplastin Time 30.4 Seconds (22.3-36.8)
--- NOTE | 2024-10-20 16:32 | ED.LOWEXIN ---
HPI - Extremity Injury (Lower) General Chief Complaint: Extremity Injury, Lower Stated Complaint: fall, left knee pain Time Seen by Provider: 10/20/24 15:20 History of Present Illness HPI Narrative: Pt tripped and fell and landed on left knee. Pt has some knee pain and swelling. Pt denies other injury. Pt had a knee replacement by Dr Landaverde several years ago. Related Data Home Medications Medication Instructions Recorded Confirmed amlodipine 10 mg tablet 10 mg PO QAM 12/11/22 04/24/24 aspirin 81 mg tablet 81 mg PO DAILY 12/11/22 04/10/24 cetirizine 10 mg tablet (Zyrtec) 10 mg PO DAILY 12/11/22 04/10/24 diclofenac sodium 75 mg 75 mg PO BID 12/11/22 04/10/24 tablet,delayed release finasteride 5 mg tablet 5 mg PO DAILY 12/11/22 04/10/24 lisinopril 40 mg tablet 40 mg PO QAM 12/11/22 04/10/24 metoprolol tartrate 50 mg tablet 50 mg PO BID 12/11/22 04/24/24 [id number] 300 mcg-K 60 1 tablet PO DAILY 12/11/22 04/10/24 mcg-lycop 600 mcg-lutein 300 mcg tablet (Centrum Silver Men) tamsulosin 0.4 mg capsule 0.4 mg PO DAILY 12/11/22 04/10/24 acetaminophen 500 mg capsule 1,000 mg PO Q6H PRN Pain 04/10/24 04/10/24 albuterol sulfate 90 mcg/actuation 2 puff inhalation Q4-6H PRN 04/10/24 04/10/24 aerosol inhaler Shortness Of Breath Or Wheezing atorvastatin 40 mg tablet 40 mg PO DAILY 04/10/24 04/10/24 esomeprazole magnesium 20 mg 20 mg PO DAILY PRN Indigestion 04/10/24 04/10/24 capsule,delayed release (Nexium) Allergies Allergy/AdvReac Type Severity Reaction Status Date / Time Sulfa (Sulfonamide Allergy Mild ITCH, HIVES Verified 04/24/24 11:33 Antibiotics) Review of Systems Review of Systems: All systems reviewed & are unremarkable except as noted in HPI and below PMFSH Past Medical History Medical History (Updated 10/20/24 @ 16:42 by Molly John Meyers III, DO) Arthritis CAD (coronary artery disease) COPD (chronic obstructive pulmonary disease) Surgical History Surgical History (Updated 04/24/24 @ 10:52 by Breezy Vanegas MD) H/O brain surgery Hx of CABG Social History Social History Smoking packs per day: 1 Smoking cigarettes per day: 20.0 Years smoked: 10 Smoking pack-years: 10.00 Smoking status: Former smoker Tobacco type: cigarettes, cigars and smokeless tobacco Smokeless tobacco user: chewing tobacco Smoking end date: 05/26/1968 Additional smoking assessment comments: QUIT CIG-1967, CHEWED AND CIGAR AT INTERVALS AFTER Alcohol intake: current Drinks per week: 4 Alcohol use details: RARELY Substance use type: does not use Living arrangements: with family Additional living arrangements comments: Gender identity (if verbalized by the patient): Male Spiritual care concerns: No Exam Const: General: healthy appearing and no acute distress Nutritional Appearance: well nourished Orientation/consciousness: patient oriented x3 Limitations: no limitations HENMT: Head: normal to inspection Resp: Effort & Inspection: normal respiratory effort Auscultation: clear to auscultation bilaterally Cardio: Rate: regular rate Rhythm: regular rhythm GI: GI Palp: Yes Soft to palpation and No Tenderness to palpation present (GI) Auscultation: normal bowel sounds Skin: General skin exam: normal color Wounds: no wounds Neuro: General: patient oriented x3 and moves all extremities Extrem: Other: swelling with mild tenderness distal femur Psych: Mental Status: mental status grossly normal Affect: normal affect Attitude: cooperative Course Vital Signs Vital signs: Vital Signs Temperature 97.9 F 10/20/24 12:23 Pulse Rate 57 L 10/20/24 12:23 Respiratory Rate 16 10/20/24 12:23 Blood Pressure 143/71 H 10/20/24 12:23 Pulse Oximetry 100 10/20/24 12:23 Temperature 97.6 F 10/20/24 16:46 Pulse Rate 70 10/20/24 17:41 Respiratory Rate 18 10/20/24 17:41 Blood Pressure 157/65 H 10/20/24 17:41 Pulse Oximetry 99 10/20/24 17:41 MDM - Extremity Injury (Lower) MDM Narrative Medical decision making narrative: Pt fell on knee that he had replaced. x ray shows periprosthetic fx. Dr Landaverde reviewed films and said needs to be transferred. Discussed with Dr Galvan and agrees to accept transfer to [facility]. Lab Data 10/20/24 15:55 10/20/24 15:55 Labs: Lab Results 10/20/24 Range/Units 15:55 WBC 11.9 H (4.5-10.0) K/mm3 RBC 4.13 L (4.6-6.20) M/mm3 Hgb 12.4 L (14.0-18.0) g/dL Hct 38.3 L (42.0-52.0) % MCV 92.7 (80-100) fl MCH 30.0 (26-34) pg MCHC 32.4 (32-36) g/dl RDW 13.5 (11.5-14.5) % Plt Count 205 (150-375) k/mm3 MPV 10.0 (7.4-10.4) fl Immature Gran % (Auto) 0.5 (0-0.5) % Neut % (Auto) 78.4 H (45.5-73.1) % Lymph % (Auto) 10.9 L (18.3-44.2) % [place] % (Auto) 7.7 (2.6-8.5) % Eos % (Auto) 1.9 (0-4.4) % Baso % (Auto) 0.6 (0.2-1.2) % Lymph # (Auto) 1.29 (0.9-3.2) K/mm3 [place] # (Auto) 0.9 H (0.1-0.6) K/mm3 Eos # (Auto) 0.2 (0-0.3) K/mm3 Baso # (Auto) 0.1 (0.0-0.1) K/mm3 Abs Immat Gran (auto) 0.06 H (0.00-0.031) K/mm3 Absolute Neuts (auto) 9.3 H (1.3-6.7) K/mm3 Absolute Nucleated RBC 0.000 (0.0-0.012) K/mm3 Nucleated RBC % 0.0 (0.0-0.2) % PT 13.3 (11.1-14.7) Seconds INR 1.0 APTT 30.4 (22.3-36.8) Seconds Sodium 136 L (137-145) mmol/L Potassium 4.7 (3.4-5.0) mmol/L Chloride 103 (98-107) mmol/L Carbon Dioxide 27 (22-30) mmol/L Anion Gap 6 (4-12) mmol/L BUN 33 H D (9-20) mg/dL Creatinine 1.20 (0.7-1.3) mg/dL Estim Creat Clear Calc 39 ml/min Estimated GFR 58 L (59 - ) Glucose 109 (65-110) mg/dL Calcium 9.6 (8.4-10.2) mg/dL Total Bilirubin 0.9 (0.2-1.3) mg/dL AST 36 (17-59) U/L ALT 28 (6-50) U/L Alkaline Phosphatase 93 (38-126) U/L Total Protein 8.0 (6.3-8.2) g/dL Albumin 4.7 (3.5-5.1) g/dL Discharge Plan Discharge Clinical Impression: Fracture of distal end of femur Patient Disposition: Acute Care Hospital Condition: Stable Prescriptions: No Action cetirizine [Zyrtec] 10 mg Tablet 10 mg PO DAILY tamsulosin 0.4 mg capsule 0.4 mg PO DAILY amlodipine 10 mg tablet 10 mg PO QAM metoprolol tartrate 50 mg tablet 50 mg PO BID diclofenac sodium 75 mg tablet,delayed release (DR/EC) 75 mg PO BID aspirin 81 mg Tablet 81 mg PO DAILY Hold Instructions: Resume on 04/27/24. lisinopril 40 mg Tablet 40 mg PO QAM finasteride 5 mg tablet 5 mg PO DAILY Centrum Silver Men 300-600-300 mcg Tablet 1 tablet PO DAILY atorvastatin 40 mg tablet 40 mg PO DAILY acetaminophen 500 mg Capsule 1,000 mg PO Q6H PRN (Reason: Pain) albuterol sulfate 90 mcg/actuation HFA aerosol inhaler 2 puff INHALATION Q4-6H PRN (Reason: Shortness Of Breath Or Wheezing) esomeprazole magnesium [Nexium] 20 mg Capsule,Delayed Release(Dr/Ec) 20 mg PO DAILY PRN (Reason: Indigestion) hydrocodone-acetaminophen 5-325 mg tablet 1 - 2 tablet PO Q6H PRN (Reason: pain) Qty: 20 0RF cephalexin 500 mg capsule 500 mg PO Q8H Qty: 9 0RF Follow-up/Referrals: Santy,Orlin Suarez MD [Primary Care Provider] -
[2024-10-20] MEDS: MORPHINE SULFATE (*CRX) 2 MG/ML INJ IV PUSH (16:44)
[2024-10-20 16:46] VITALS: BP 170/76; PULSE 73; RESP 18; TEMP 36.4; O2SAT 98
[2024-10-20 17:41] VITALS: BP 157/65; PULSE 70; RESP 18; O2SAT 99
[2024-10-20 19:21] VITALS: BP 146/67; PULSE 82; RESP 18; O2SAT 100
== END 2024-10-20 19:42 | disposition short-term general hospital (02) ==
PROVIDERS: Emergency Provider Emergency Medicine; PCP Internal Medicine
DX: S72.402A Unspecified fracture of lower end of left femur, initial encounter for closed fracture (principal); M97.12XA Periprosthetic fracture around internal prosthetic left knee joint, initial encounter; W01.0XXA Fall on same level from slipping, tripping and stumbling without subsequent striking against object, initial encounter; M19.90 Unspecified osteoarthritis, unspecified site; I25.10 Atherosclerotic heart disease of native coronary artery without angina pectoris; J44.9 Chronic obstructive pulmonary disease, unspecified
CPT/HCPCS: 36415; 73564; 80053; 85025; 85610; 85730; 96374; 99285; J2270